=== PATIENT | male | born 1990 | race Caucasian/White ===

== ENCOUNTER 2016-03-17 21:12 | Emergency (ER) | payer OTHER ==
[2016-03-17 21:19] VITALS: TEMP 98.2
[2016-03-17] MEDS ORDERED: TDAP ADULT 0.5 ML VIAL (BOOSTRIX) IM ONE (21:29)
--- NOTE | 2016-03-17 22:15 | EDPHY ---
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 Patient denies numbness or tingling in the fingers, he denies other complaints. Smoking Status: Light smoker Physical Exam: GEN: Awake, alert, oriented, no acute distress RESP: nl resp effort MSK: Full flexion and extension against resistance of right middle and ring fingers at DIP, PIP and MCP joints, 2 point discrimination intact, cap refill less than 2 seconds SKIN: Right middle finger with 1.5 cm horizontal laceration just proximal to DIP joint with flexor tendon laceration, right ring finger with 1 cm horizontal laceration just proximal to DIP joint Constitutional: Initial Vital Signs Temperature (C) 36.8 C 03/17/16 21:14 Heart Rate 67 03/17/16 21:14 Respiratory Rate 18 03/17/16 21:14 Blood Pressure 124/83 H 03/17/16 21:14 O2 Sat (%) 96 03/17/16 21:14 O2 Delivery Mode Room Air Allergies/Adverse Reactions: No Known Allergies Allergy (Unverified 03/17/16 21:18) Home Medications: Medication Instructions Recorded Cephalexin [Keflex] 500 mg PO TID 4 Days 03/17/16 MDM/Departure - MDM Procedures: Procedure: Laceration repair. Verbal consent was obtained from the patient. The 1.5 cm laceration on the right middle finger and 1 cm laceration on the right ring finger was anesthetized using a mixture of 1% lidocaine without epinephrine and 0.5% bupivacaine without epinephrine using a digital block approach. The wounds were carefully irrigated by the emergency department septic tank service technician. Next, the wounds were prepped and draped in sterile fashion and explored to its base with a gloved finger. Flexor tendon laceration to right middle finger. No vascular injury was identified. No foreign bodies were identified. The wound was repaired with 5.0 Prolene, 4. Simple interrupted sutures to right middle finger, 4. Simple interrupted sutures to right ring finger. The wound repair was simple. The procedure was performed by myself. Tetanus and antibiotic status were addressed. Medications Given: Discontinued Medications Diphtheria/Tetanus/Acell Pertussis (Boostrix) 0.5 ml IM .ONCE ONE Stop: 03/17/16 21:30 Last Admin: 03/17/16 21:31 Dose: 0.5 ml - Depart Disposition: Home, Routine, Self-Care Clinical Impression: Laceration of right ring finger, Laceration of right middle finger with tendon involvement Condition: Good Instructions: Care For Your Stitches (ED), Finger Laceration (ED), Cephalexin ( By mouth), Tendon Laceration (ED) Additional Instructions: Return to the emergency department in 12-14 days for suture removal for your right ring finger, follow up with the hand surgeon at 1st available appointment , call in the morning to schedule this appointment for tendon repair. Keep your dressing on, clean and dry with splint in place until you are seen by the hand surgeon. Take your antibiotics as prescribed. Stand Alone Forms: Work Comp Follow Up Prescriptions: Cephalexin [Keflex] 500 mg PO TID 4 Days Referrals: Paulo Onael MD [Medical Doctor] - As per Instructions (Hand surgeon on-call )
[2016-03-17] MEDS ORDERED: HYDROCOD/APAP 5/325 PREPACK#6 BTL TAKEHOME ONE (22:33)
[2016-03-17] MEDS ORDERED: CEPHALEXIN 500MG PREPACK#4 BTL TAKEHOME ONE (22:33)
[2016-03-17 23:54] VITALS: BP 138/81; PULSE 86; RESP 16; O2SAT 97
== END 2016-03-17 23:54 | disposition home or self-care (01) ==
PROC: 0HQFXZZ Repair Right Hand Skin, External Approach (ICD-10-PCS; principal; 2016-03-17)
DX: S61.214A Laceration without foreign body of right ring finger without damage to nail, initial encounter (principal); S56.123A Laceration of flexor muscle, fascia and tendon of right middle finger at forearm level, initial encounter; F17.200 Nicotine dependence, unspecified, uncomplicated; Z23 Encounter for immunization; W45.8XXA Other foreign body or object entering through skin, initial encounter; Y92.69 Other specified industrial and construction area as the place of occurrence of the external cause; Y99.0 Civilian activity done for income or pay; Y93.89 Activity, other specified
CPT/HCPCS: 96374; J0690

== ENCOUNTER 2016-12-01 01:12 | Emergency (ER) | payer SELFPAY ==
[2016-12-01 01:17] VITALS: BP 128/88; PULSE 92; RESP 20; TEMP 97.7; O2SAT 100
== END 2016-12-01 01:29 | disposition left against medical advice (07) ==
DX: Z53.21 Procedure and treatment not carried out due to patient leaving prior to being seen by health care provider (principal)

== ENCOUNTER → 2018-03-20 | Outpatient (CLI) | payer OTHER | LOC: FLAB 15:51 | PROVIDERS: ATTEND Internal Medicine | DX: M54.2 Cervicalgia (principal) ==